=== PATIENT | female | born 1960 | race Caucasian/White ===

== ENCOUNTER 2017-08-24 07:44 | Day surgery (SDC) | payer BC ==
[2017-08-21 09:03] VITALS: BMI 27.4
[2017-08-24] MEDS ORDERED: Propofol 10 mg/ml Inj (20 ML) ONE (08:10)
[2017-08-24] MEDS ORDERED: Sodium Chloride 0.9% 1,000 ML IV SCH (09:15)
[2017-08-24 10:44] VITALS: BP 120/58; PULSE 62; RESP 16; TEMP 97.8; O2SAT 99
== END 2017-08-24 10:13 | disposition home or self-care (01) ==
LOC: ENDO 07:44
PROVIDERS: ATTEND Internal Medicine Gastroenterology
DX: K29.70 Gastritis, unspecified, without bleeding (principal); K44.9 Diaphragmatic hernia without obstruction or gangrene; K21.9 Gastro-esophageal reflux disease without esophagitis; E78.5 Hyperlipidemia, unspecified; E78.00 Pure hypercholesterolemia, unspecified; F32.89 Other specified depressive episodes; F41.9 Anxiety disorder, unspecified; M81.0 Age-related osteoporosis without current pathological fracture; Z98.51 Tubal ligation status; Z90.710 Acquired absence of both cervix and uterus; K29.50 Unspecified chronic gastritis without bleeding
CPT/HCPCS: 43239; 88305; 88342; J2704; J7030; J7040